=== PATIENT | male | born 1990 | race Caucasian/White ===

== ENCOUNTER 2016-08-25 16:55 | Emergency (ER) | payer MEDICAID ==
[2016-08-25 17:03] VITALS: RESP 16; TEMP 98.1; O2SAT 96
--- NOTE | 2016-08-25 18:57 | EDPHY ---
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 followed by neurology at [facility]. patient relates he tripped and fell accidental; witnessed; no LOC, saw "double for a bit." called neurology today and advised to go to ER for Head CT scan. does not take any blood thinners. behaving normally. Modifying Factors: Comment: ROS: Eyes: No blurred vision Respiratory: No shortness of breath, no cough Cardiovascular: No chest pain Gastrointestinal: No nausea, no vomiting no diarrhea Genitourinary: No dysuria Extremities: No myalgias Neurologic: No weakness, no numbness Skin: No rashes Hematologic: No bruising, no bleeding MEDICAL/SURGICAL HISTORY: see above Social History: lives with girlfriend Smoking Status: Former smoker Physical Exam: CONSTITUTIONAL: pleasant talkative younfg adult male, awake and alert, no obvious distress HEENT: Atraumatic and normocephalic, PERRL, EOMI. Tympanic membranes clear. . Oropharynx clear, no exudate and moist pink mucosa. Airway patent. No lymphadenopathy. No meningismus. Cardiovascular: Normal S1/S2, regular rate, regular rhythm, without murmur rub or gallop. PULMONARY/CHEST: Symmetrical and nontender. Clear to auscultation bilaterally Good air movement. No accessory muscle usage. ABDOMEN: Soft, nondistended, nontender, no rebound, no guarding, no peritoneal signs, no masses or organomegaly. No CVAT. EXTREMITIES: 2/2 pulses, no deformities, no clubbing, no cyanosis or edema. NEUROLOGICAL: no focal neuro deficits. GCS 15. peripheral vision normal. normal finger to nose. normal heel to rogers. no ataxia. SKIN: Warm and dry, no erythema. no rash. Good capillary refill. Constitutional: Initial Vital Signs Temperature (C) 36.7 C 08/25/16 16:59 Heart Rate 64 08/25/16 16:59 Respiratory Rate 16 08/25/16 16:59 Blood Pressure 105/70 08/25/16 16:59 O2 Sat (%) 96 08/25/16 16:59 O2 Delivery Mode Room Air Allergies/Adverse Reactions: opiates Allergy (Mild, Uncoded 08/25/16 16:58) GI upset Home Medications: Medication Instructions Recorded Ibuprofen [Motrin (RX)] 600 mg PO 12/07/13 LaMICtal 08/25/16 Medical Decision Making - Diagnostics Imaging Results: Imaging Impressions Head CT 08/25/16 18:02 Impression: Resolved cerebral edema. Nothing acute identified. Results called to Miriam Ruiz at 6:45 PM General information for patients regarding this examination can be found at [email or web address]. If you have questions or comments about this report, please contact me at (hospital) or [phone] (cell). ED Course/Re-evaluation: Head CT scan ordered due to history of brain surgery and neurology referral [facility]: right, left, bilateral no signs of ICH/fracture/CVA/TIA/syncope advised fall precautions and follow up with neurology as planned. Differential Diagnosis: Diplopia differential diagnosis includes but not limited to intracranial hemorrhage, edema, midline shift. Departure - Departure Disposition: Home, Routine, Self-Care Clinical Impression: History of surgery of head Accidental fall Qualifiers: Encounter type: initial encounter Qualified Code(s): W19.XXXA - Unspecified fall, initial encounter Condition: Good Instructions: Fall Prevention (ED) Additional Instructions: Follow up neurology at as planned. Referrals: Ulises Cole MD [Primary Care Provider] - As per Instructions
[2016-08-25 19:21] VITALS: BP 123/85; PULSE 62
== END 2016-08-25 19:21 | disposition home or self-care (01) ==
DX: Z98.890 Other specified postprocedural states (principal); Z04.3 Encounter for examination and observation following other accident; Z87.891 Personal history of nicotine dependence; W01.0XXA Fall on same level from slipping, tripping and stumbling without subsequent striking against object, initial encounter

== ENCOUNTER 2016-09-26 15:38 | Emergency (ER) | payer MEDICAID ==
[2016-09-26] MEDS ORDERED: levETIRAcetam 1,000 MG in NS 100 ML IV ONE (15:42)
[2016-09-26 15:58] LABS: % IMMATURE GRANULYOCYTES 0.7 % (0.0-1.1); ABSOLUTE IMMATURE GRANULOCYTES 0.12 10^3/uL (0.00-0.10); ADD DIFF? NO; ADD MORPH? NO; ADD SCAN? NO; ATYPICAL LYMPHOCYTE FLAG 0 (0-99); FRAGMENT RBC FLAG 0 (0-99); HEMATOCRIT 58.6 % (40.0-51.0); HEMOGLOBIN 17.7 g/dL (13.7-17.5); LEFT SHIFT FLG 10 (0-99); LIPEMIA HEMOLYSIS FLAG 80 (0-99); MEAN CELL HEMOGLOBIN 30.1 pg (27.9-34.1); MEAN CELL HEMOGLOBIN CONCENTR. 30.2 g/dL (32.4-36.7); MEAN CELL VOLUME 99.5 fL (81.5-99.8); MEAN PLATELET VOLUME 10.4 fL (8.7-11.7); PLATELET CLUMPS FLAG 0 (0-99); PLATELET COUNT 291 10^3/uL (150-400); RED BLOOD CELL COUNT 5.89 10^6/uL (4.40-6.38); RED CELL DISTRIBUTION WIDTH 12.3 % (11.5-15.2)
[2016-09-26] MEDS ORDERED: LORazepam 2 MG/ML INJ ONE (16:06)
[2016-09-26] MEDS ORDERED: LORazepam 2 MG/ML INJ IVP ONE ×2 (16:11→16:53)
[2016-09-26 16:12] LABS: APTT 26.4 SEC (23.0-38.0); INR 1.24 (0.83-1.16); PROTIME(PATIENT) 15.6 SEC (12.0-15.0)
[2016-09-26 16:18] LABS: ANION GAP 35 mEq/L (8-16); CALCIUM 11.1 mg/dL (8.5-10.4); CHLORIDE 106 mEq/L (97-110); CREATININE 1.2 mg/dL (0.7-1.3); ETHANOL SERUM < 10 mg/dL (0-10); GLOMERULAR FILTRATION RATE > 60; GLUCOSE 210 mg/dL (70-100); POTASSIUM 4.8 mEq/L (3.5-5.2); SODIUM 149 mEq/L (134-144)
--- NOTE | 2016-09-26 16:29 | EDPHY ---
H & P Time Seen by Provider: 09/26/16 15:57 HPI/ROS: CHIEF COMPLAINT: Altered mental status, seizure HISTORY OF PRESENT ILLNESS: The patient is a 26-year-old male with history of traumatic brain injury who presents to the emergency department with altered mental status and seizure. Per EMS, the patient was in his girlfriend mother's car when he stated he did not feel well. He then began having tonic-clonic type seizure activity. EMS arrived to find the patient with seizure-like activity. IV was placed. Patient was given a total of Versed 10 mg. On arrival to the emergency department patient was still having seizure-type activity and was not responsive to questioning. History is limited due the patient's mental status. REVIEW OF SYSTEMS: Unable to obtain due the patient's altered mental status and seizure Past Medical/Surgical History: Includes traumatic brain injury, seizure activity Past surgical history: Includes craniectomy Smoking Status: Unknown if ever smoked Physical Exam: Vitals noted. GENERAL: unresponsive. Eyes open. Occasional twitching facial activity. HEENT: Deformity on right skull. Pupils mildly dilated bilaterally. Minimally responsive to light. No pharyngeal lesions. Mild gag reflex. NECK: No thyromegaly, no lymphadenopathy, supple. RESPIRATORY: Coarse breath sounds bilaterally, no rhonchi or wheezing. CVS: Regular rate and rhythm, no rubs, murmurs, or gallops. ABDOMEN: Soft, nontender, no organomegaly. BACK: Normal to inspection, no CVA tenderness. SKIN: Normal color, no rash, warm, dry. No pallor. EXTREMITIES: No pedal edema, no calf tenderness, no Homans sign or cords, no joint swelling. NEURO/PSYCH: Patient unresponsive, no purposeful movement. Constitutional: Initial Vital Signs Temperature (C) 37.6 C 09/26/16 15:38 Heart Rate 134 H 09/26/16 15:38 Respiratory Rate 40 H 09/26/16 15:38 Blood Pressure 152/80 H 09/26/16 15:38 O2 Sat (%) 90 L 09/26/16 15:38 O2 Delivery Mode Ventilator O2 (L/minute) 15 Allergies/Adverse Reactions: Unable to Assess Allergy (Unverified 09/26/16 16:06) Home Medications: Medication Instructions Recorded Unobtainable 09/26/16 Medical Decision Making - Diagnostics Imaging Results: Imaging Impressions Head CT 09/26/16 15:42 Impression: Nothing acute. Findings and recommendations discussed with Minoo Segundo M.D., at 1620 hours, on September 26, 2016. Final report concurs with initial preliminary interpretation. Chest X-Ray 09/26/16 15:44 Impression: Negative portable chest Procedures: Indication for the procedure was airway protection. The patient was preoxygenated with 100% oxygen by face mask and nasal cannula. The patient was sedated with ketamine and paralyzed with rocuronium. The patient was orally endotracheally intubated under video laryngoscopy with a 7.5 ETT. Tracheal intubation was confirmed with misting on the tube; breath sounds were auscultated equally and course bilaterally; appropriate color change with [place] CO2 detector, capnography waveform is appropriate, oxygen saturation after procedure is 99%. Chest X-ray shows ETT in good position. The procedure was performed by myself. ED sedation Indication: Endotracheal intubation, ongoing seizure activity Patient was given propofol sedation post intubation for sedation ongoing seizure activity. ED Course/Re-evaluation: I met EMS on arrival. I took report from the director of intelligence. The patient was kept on supplemental oxygen and capnometry placed. EMS IV flushed and second line placed. Patient was noted to have intermittent facial twitching and left hand repetitive movement. Ativan 2 mg IV for possible ongoing seizure activity. Patient given normal saline 500 mL IV. Bedside chest x-ray: No acute disease noted. NPA placed. I reviewed the patient's i-STAT. His glucose was normal. His potassium was mildly elevated at 5.0. Head CT: Please refer the dictated report by Dr. Jillian Schreiber. No acute disease noted. Patient's girlfriend arrived to the emergency department. She states he has a history of traumatic brain injury. He takes seizure medication regularly but did not take his medication yesterday. His last seizure was last week. This normally is in the form of "an anxiety attack." She has not witnessed him having seizure-type movement previously. They have been together for 4 years. No recent trauma or injury per her report. She states that the patient normally receives his care at . I requested she obtained the name of his epileptologist. Spent significant time at the patient's bedside. Patient continued to have a gag reflex. He was placed on high-flow nasal cannula for his oxygen saturation dropping into the high 80s. He continued to tolerated the NPA. A Jose catheter was placed. Patient's girlfriend found the patient's primary care physician at [facility] - Dr. Melton. I discussed the case with [facility] transfer center. [facility] was launched for transport. Patient had elevated white count 37100. Hematocrit elevated at 58. CO2 was low at 8. Patient has elevated anion gap. Patient was noted to have negative UA. Salicylate and acetaminophen were negative. Alcohol level negative. Patient was given normal saline for hydration and elevated hematocrit of 58. On recheck the patient continued to have slight twitching activity of his face. He was given Ativan 1 mg IV. On recheck the patient had no gag reflex. Because the patient is being transferred and I am concerned for airway protection the patient was intubated. I discussed this with the patient's mother. She consented. The patient was intubated using ketamine for induction and rocuroniumfor paralysis. The patient's potassium on i-STAT was noted to be 5.0. Patient tolerated the procedure well. His oxygen saturation improved post intubation. He is placed on a propofol drip for sedation. I discussed the plan and patient's status with patient's family and girlfriend. 1700: I am still waiting for an accepting physician from [facility]. I re- paged there call center. I discussed the case with their tape transferrer. She will again attempt to obtain a physician and call me back. I discussed case with Dr. Rush. She accepted the patient. She agrees with the treatment plan thus far. 17 20: Nursing staff states they are waiting for a bed at the receiving facility. We do not have a nurse to nurse report at this time. Flight crew awaiting transfer. Differential Diagnosis: My differential includes but is not limited to epilepsy, status epilepticus, traumatic brain injury, subarachnoid hemorrhage, subdural hematoma, epidural hematoma, electrolyte abnormality, sugar abnormality, ACS, acute SC, pneumonia, bacteremia, sepsis Critical Care Time: The patient required 65 minutes of critical care time. This was exclusive of any unbundled procedure. This was due to the patient's altered mental status, extensive time spent at the bedside, multiple discussions with the patient's family, consultation with [facility], Dr. Rush and frequent rechecks. - Data Points Laboratory Results: Laboratory Results 09/26/16 15:30 09/26/16 15:30 09/26/16 09/26/16 09/26/16 16:25 16:25 15:30 WBC RBC Hgb Hct MCV MCH MCHC RDW Plt Count MPV Neut % (Auto) Lymph % (Auto) [place] % (Auto) Eos % (Auto) Baso % (Auto) Nucleat RBC Rel Count Absolute Neuts (auto) Absolute Lymphs (auto) Absolute Monos (auto) Absolute Eos (auto) Absolute Basos (auto) Absolute Nucleated RBC Immature Gran % Immature Gran # PT INR APTT Sodium Potassium Chloride Carbon Dioxide Anion Gap BUN Creatinine Estimated GFR Glucose Calcium Phosphorus Urine Color YELLOW Urine Appearance CLEAR Urine pH 6.0 (5.0-7.5) Ur Specific [place] 1.010 (1.002-1.030) Urine Protein 1+ H (NEGATIVE) Urine Ketones NEGATIVE (NEGATIVE) Urine Blood NEGATIVE (NEGATIVE) Urine Nitrate NEGATIVE (NEGATIVE) Urine Bilirubin NEGATIVE (NEGATIVE) Urine Urobilinogen NEGATIVE EU EU (0.2-1.0) Ur Leukocyte Esterase NEGATIVE (NEGATIVE) Urine RBC 1-3 /hpf /hpf (0-3) Urine WBC 0-1 /hpf /hpf (0-3) Ur Epithelial Cells TRACE /lpf /lpf (NONE-1+) Hyaline Casts 1-5 /lpf /lpf (0-1) Urine Mucus TRACE /lpf /lpf (NONE-1+) Urine Glucose NEGATIVE (NEGATIVE) Salicylates < 1.0 mg/dL L mg/dL (2.0-20.0) Urine Opiates Screen NEGATIVE (NEGATIVE) Acetaminophen < 10 mcg/mL L mcg/mL (10.0-30.0) Urine Barbiturates NEGATIVE (NEGATIVE) Ur Phencyclidine Scrn NEGATIVE (NEGATIVE) Ur Amphetamine Screen NEGATIVE (NEGATIVE) U Benzodiazepines Scrn NEGATIVE (NEGATIVE) Urine Cocaine Screen NEGATIVE (NEGATIVE) U Marijuana (THC) Screen NEGATIVE (NEGATIVE) Ethyl Alcohol 09/26/16 09/26/16 09/26/16 15:30 15:30 15:30 WBC 16.17 10^3/uL H 10^3/uL (3.80-9.50) RBC 5.89 10^6/uL 10^6/uL (4.40-6.38) Hgb 17.7 g/dL H g/dL (13.7-17.5) Hct 58.6 % H % (40.0-51.0) MCV 99.5 fL fL (81.5-99.8) MCH 30.1 pg pg (27.9-34.1) MCHC 30.2 g/dL L g/dL (32.4-36.7) RDW 12.3 % % (11.5-15.2) Plt Count 291 10^3/uL 10^3/uL (150-400) MPV 10.4 fL fL (8.7-11.7) Neut % (Auto) 33.1 % L % (39.3-74.2) Lymph % (Auto) 54.2 % H % (15.0-45.0) [place] % (Auto) 7.6 % % (4.5-13.0) Eos % (Auto) 3.7 % % (0.6-7.6) Baso % (Auto) 0.7 % % (0.3-1.7) Nucleat RBC Rel Count 0.0 % % (0.0-0.2) Absolute Neuts (auto) 5.34 10^3/uL 10^3/uL (1.70-6.50) Absolute Lymphs (auto) 8.77 10^3/uL H 10^3/uL (1.00-3.00) Absolute Monos (auto) 1.23 10^3/uL H 10^3/uL (0.30-0.80) Absolute Eos (auto) 0.60 10^3/uL H 10^3/uL (0.03-0.40) Absolute Basos (auto) 0.11 10^3/uL H 10^3/uL (0.02-0.10) Absolute Nucleated RBC 0.00 10^3/uL 10^3/uL (0-0.01) Immature Gran % 0.7 % % (0.0-1.1) Immature Gran # 0.12 10^3/uL H 10^3/uL (0.00-0.10) PT 15.6 SEC H SEC (12.0-15.0) INR 1.24 H (0.83-1.16) APTT 26.4 SEC SEC (23.0-38.0) Sodium 149 mEq/L H mEq/L (134-144) Potassium 4.8 mEq/L mEq/L (3.5-5.2) Chloride 106 mEq/L mEq/L (97-110) Carbon Dioxide 8 mEq/l L* mEq/l (22-31) Anion Gap 35 mEq/L H mEq/L (8-16) BUN 10 mg/dL mg/dL (7-23) Creatinine 1.2 mg/dL mg/dL (0.7-1.3) Estimated GFR > 60 Glucose 210 mg/dL H mg/dL (70-100) Calcium 11.1 mg/dL H mg/dL (8.5-10.4) Phosphorus 9.1 mg/dL H mg/dL (2.5-4.5) Urine Color Urine Appearance Urine pH Ur Specific [place] Urine Protein Urine Ketones Urine Blood Urine Nitrate Urine Bilirubin Urine Urobilinogen Ur Leukocyte Esterase Urine RBC Urine WBC Ur Epithelial Cells Hyaline Casts Urine Mucus Urine Glucose Salicylates Urine Opiates Screen Acetaminophen Urine Barbiturates Ur Phencyclidine Scrn Ur Amphetamine Screen U Benzodiazepines Scrn Urine Cocaine Screen U Marijuana (THC) Screen Ethyl Alcohol < 10 mg/dL mg/dL (0-10) Medications Given: Discontinued Medications Fentanyl (Sublimaze) 100 mcg IVP EDNOW ONE Stop: 09/26/16 16:56 Last Admin: 09/26/16 17:18 Dose: Not Given Levetiracetam 1,000 mg/ Sodium (Chloride) 110 mls @ 440 mls/hr IV EDNOW ONE Stop: 09/26/16 15:56 Last Admin: 09/26/16 15:53 Dose: 110 mls Ketamine HCl (Ketamine) 100 mg IVP EDNOW ONE Stop: 09/26/16 16:54 Last Admin: 09/26/16 16:55 Dose: 100 mg Lorazepam (Ativan Injection) 2 mg IVP EDNOW ONE Stop: 09/26/16 16:12 Last Admin: 09/26/16 15:46 Dose: 2 mg Lorazepam (Ativan Injection) 1 mg IVP EDNOW ONE Stop: 09/26/16 16:54 Last Admin: 09/26/16 16:47 Dose: 1 mg Rocuronium [place] (Zemuron) 80 mg IVP EDNOW ONE Stop: 09/26/16 16:54 Last Admin: 09/26/16 16:52 Dose: 80 mg Departure - Departure Disposition: Acute [facility] Clinical Impression: Status epilepticus Altered mental state Qualifiers: Altered mental status type: unspecified Qualified Code(s): R41.82 - Altered mental status, unspecified Leukocytosis Qualifiers: Leukocytosis type: other Qualified Code(s): D72.828 - Other elevated white blood cell count Condition: Critical Referrals: Ulises Cole MD [Primary Care Provider] - As per Instructions
[2016-09-26 16:31] LABS: CARBON DIOXIDE 8 mEq/l (22-31)
[2016-09-26] MEDS ORDERED: PROPOFOL/EMULSION 1,000 MG/100 ML BOTTLE IV ONE (16:42)
[2016-09-26 16:46] LABS: COLOR YELLOW; LEUKOCYTE ESTERASE,URINE NEGATIVE (NEGATIVE); NITRITE,URINE NEGATIVE (NEGATIVE)
[2016-09-26 16:50] LABS: MUCUS TRACE /lpf (NONE-1+)
[2016-09-26 16:52] LABS: WBC,URINE 0-1 /hpf (0-3)
[2016-09-26] MEDS ORDERED: ROCURONIUM 100 MG/10 ML VIAL IVP ONE (16:53)
[2016-09-26] MEDS ORDERED: KETAMINE 100 MG/10 ML SYR IVP ONE (16:53)
[2016-09-26 16:55] LABS: SALICYLATE < 1.0 mg/dL (2.0-20.0)
[2016-09-26] MEDS ORDERED: fentaNYL 100 MCG/2 ML INJ IVP ONE (16:55)
[2016-09-26] MEDS ORDERED: PROPOFOL/EMULSION 100 ML IV SCH (17:00)
--- NOTE | 2016-09-26 17:04 | CPEKG ---
Heart Rate: 64 RR Interval: 938 P-R Interval: 156 QRSD Interval: 120 QT Interval: 356 QTC Interval: 368 P [place]: 72 QRS [place]: 92 T Wave [place]: 67 EKG Severity - ABNORMAL ECG - EKG Impression: UNKNOWN RHYTHM, IRREGULAR RATE 47-80 EKG Impression: RBBB AND LPFB Electronically Signed By: Minoo Segundo 26-Sep-2016 20:58:24
[2016-09-26 17:18] VITALS: TEMP 97.3
[2016-09-26 17:24] VITALS: RESP 12
[2016-09-26 17:26] LABS: CALCULATED OXYGEN SATURATION 100 % (92-95)
[2016-09-26] MEDS ORDERED: KETAMINE 100 MG/10 ML SYR ONE (17:47)
[2016-09-26 18:05] VITALS: BP 133/78
[2016-09-26 18:09] VITALS: PULSE 123; O2SAT 96
== END 2016-09-26 17:45 | disposition short-term general hospital (02) ==
LOC: MERGE 15:38 → EDBD 15:38
PROC: 0BH17EZ Insertion of Endotracheal Airway into Trachea, Via Natural or Artificial Opening (ICD-10-PCS; principal; 2016-09-26)
PROC: 0T9B70Z Drainage of Bladder with Drainage Device, Via Natural or Artificial Opening (ICD-10-PCS; 2016-09-26)
DX: G40.901 Epilepsy, unspecified, not intractable, with status epilepticus (principal); R41.82 Altered mental status, unspecified; D72.829 Elevated white blood cell count, unspecified; R79.1 Abnormal coagulation profile
CPT/HCPCS: 80305; 82947-QW; 96365; G0480; J1953; J2060; J2704

== ENCOUNTER 2017-01-01 09:46 | Emergency (ER) | payer MEDICAID ==
[2017-01-01] MEDS ORDERED: LORazepam 2 MG/ML INJ ONE (09:50)
[2017-01-01] MEDS ORDERED: PROPOFOL/EMULSION 1,000 MG/100 ML BOTTLE IV ONE (09:52)
[2017-01-01] MEDS ORDERED: FOSPHENYTOIN SODIUM 500 MGPE/10 ML VIAL IVP ONE (09:58)
[2017-01-01] MEDS ORDERED: levETIRAcetam 500 MG in NS 100 ML IV ONE ×3 (10:00→11:01)
[2017-01-01 10:03] VITALS: TEMP 97.3
[2017-01-01] MEDS ORDERED: LORazepam 2 MG/ML INJ IVP ONE (10:05)
[2017-01-01 10:12] LABS: PLATELET COUNT 320 10^3/uL (150-400)
[2017-01-01] MEDS ORDERED: ETOMIDATE 40 MG/20 ML INJ IVP ONE ×2 (10:14→10:15)
[2017-01-01] MEDS ORDERED: SUCCINYLCHOLINE CHLORIDE 200 MG/10 ML VIAL IVP ONE ×2 (10:15)
--- NOTE | 2017-01-01 10:23 | EDPHY ---
H & P HPI/ROS: CHIEF COMPLAINT: Seizure, unresponsiveness HISTORY OF PRESENT ILLNESS: 26-year-old male with a traumatic head injury and resultant seizure disorder presents with status epilepticus. This morning, he had a focal seizure, witnessed by his girlfriend. These seizures consist of him being very anxious and somewhat tremulous. He was conversing with her during his head, but suddenly his eyes rolled back and he became unresponsive. She called 911. On EMS arrival, the patient was unresponsive and not maintaining his airway well. An OPA was placed and he was placed on 100% non- rebreather. Versed 5 mg IV given prior to arrival. He takes Vimpac for seizures and ran out of this medication this morning. REVIEW OF SYSTEMS: Unable to determine because of unresponsiveness Past Medical/Surgical History: Traumatic head injury, status post craniectomy 5 years ago Seizure disorder Social History: Single Neurologist: Dr. Melton at [facility] [place] Smoking Status: Unknown if ever smoked Physical Exam: General Appearance: Unresponsive to painful stimuli, tachypnea Head: Right skull deformity Eyes: Pupils equal and round, dysconjugate gaze ENT, Mouth: Mucous membranes moist, no gag reflex Neck: Normal inspection Respiratory: tachypnea, diffuse rhonchi Cardiovascular: Regular rate and rhythm Gastrointestinal: Abdomen is soft Neurological: unresponsive to painful stimuli, moves both legs spontaneously Skin: Warm and dry Extremities: normal inspection Psychiatric: unable to determine Constitutional: Initial Vital Signs Temperature (C) 36.3 C 01/01/17 10:01 Heart Rate 100 01/01/17 10:01 Respiratory Rate 36 H 01/01/17 10:01 Blood Pressure 148/78 H 01/01/17 10:01 O2 Sat (%) 90 L 01/01/17 10:01 O2 Delivery Mode Ventilator Allergies/Adverse Reactions: opiates Allergy (Mild, Uncoded 08/25/16 16:58) GI upset Home Medications: Medication Instructions Recorded Vimpat 01/01/17 Medical Decision Making - Diagnostics Imaging Results: Imaging Impressions Chest X-Ray 01/01/17 09:59 Impression: 1. High positioning of the endotracheal tube, 9.5 cm above the ayana. 2. Mild peribronchial thickening. Findings communicated via secure Voalte text to FALLON ROSA 01/01/2017at 10: [address] 01/01/17 09:59 Impression: 1. No acute intracranial findings. 2. Multiple stable findings, as above. Findings discussed with Fallon Rosa on January 01, 2017 at 1038 hours. Chest X-Ray 01/01/17 10:15 Impression: Interval advancement of endotracheal tube, now in good position. Procedures: Procedure: RSI Intubation Indication for the procedure was status epilepticus, airway protection. The patient was preoxygenated with 100% oxygen by face mask. The patient was sedated with etomidate and paralyzed with succinylcholine. The patient was orally endotracheally intubated under direct glidescope visualization with a 7.5 ETT. Tracheal intubation was confirmed with misting on the tube; equal breath sounds bilaterally immediately after intubation; appropriate color change with [place] End Tidal CO2 detector; and appropriate capnography waveform. Oxygen saturation after intubation is 96% . The procedure was performed by myself. Chest X-ray shows ETT high, the ET tube was repositioned by RT. ED Course/Re-evaluation: This patient presents in status epilepticus. An IV was placed and Ativan 1 mg IV given as we set up for intubation. The patient was orally intubated with a 7.5 endotracheal tube. The ETT was a too high. After repositioning, the patient began to gag and choke. I checked the endotracheal tube and it was not in correct positioning. I reintubated the patient using a repeat dose of etomidate and succinylcholine. A 7.5 endotracheal tube was placed under direct vision using the glide scope. A repeat chest x-ray revealed ET tube in good positioning. The pt was always adequately oxygen needed and had no episodes of hypoxia. The patient was sent to CT scan. Keppra [address] after CT scan. The transfer Center was consulted. Prior medical record reviewed; this patient presented in status epilepticus in August 2016, was intubated and was flown to [place], where his usual neurologist is. 10:30 a.m.-generalized seizure. Fosphenytoin is infusing. Keppra 500 mg IV ordered (total of 1gram). Vecuronium 10 mg IV given. After the vecuronium, the patient's blood pressure transiently lowered to 80's/50's. The propofol was held. After IV normal saline, his blood pressure stabilized. He began moving again. After this the propofol was restarted slowly. His blood pressure remained stable after this and he remained appropriately sedated. 10:45 a.m.-I consulted Dr. Pardo at [place]. She accepts transfer to [place] ICU. ABG performed, ph 7.23, secondary to prolonged seizure activity. Discussed with Respiratory therapy, the respiratory rate was increased. The FiO2 was decreased because the PO2 of 465. The transfer center was contacted with the ABG results (at Dr. Mcneal's request). The patient was transferred to [facility] by critical care transport. Differential Diagnosis: Differential diagnosis includes though it is not limited to status epilepticus, hypoglycemia, intracranial hemorrhage, CVA, benzodiazepine withdrawal, alcohol withdrawal, epilepsy. Critical Care Time: I spent a total of 50 minutes of critical care time in obtaining history, performing a physical exam, bedside monitoring of interventions, collecting and interpreting tests and discussion with consultants but not including time spent performing procedures. Primary organ at risk: brain - Data Points Laboratory Results: Laboratory Results 01/01/17 09:50 01/01/17 09:50 01/01/17 01/01/17 01/01/17 11:00 09:50 09:50 WBC 15.33 10^3/uL H 10^3/uL (3.80-9.50) RBC 5.79 10^6/uL 10^6/uL (4.40-6.38) Hgb 17.3 g/dL g/dL (13.7-17.5) Hct 54.0 % H % (40.0-51.0) MCV 93.3 fL fL (81.5-99.8) MCH 29.9 pg pg (27.9-34.1) MCHC 32.0 g/dL L g/dL (32.4-36.7) RDW 12.4 % % (11.5-15.2) Plt Count 320 10^3/uL 10^3/uL (150-400) MPV 10.2 fL fL (8.7-11.7) Neut % (Auto) Not Reported Lymph % (Auto) Not Reported [place] % (Auto) Not Reported Eos % (Auto) Not Reported Baso % (Auto) Not Reported Nucleat RBC Rel Count 0.0 % % (0.0-0.2) Absolute Neuts (auto) Not Reported Absolute Lymphs (auto) Not Reported Absolute Monos (auto) Not Reported Absolute Eos (auto) Not Reported Absolute Basos (auto) Not Reported Absolute Nucleated RBC 0.00 10^3/uL 10^3/uL (0-0.01) Immature Gran % Not Reported Seg Neutrophils % 26 % % Lymphocytes % 64 % % Monocytes % 8 % % Eosinophils % 2 % % Immature Gran # Not Reported Absolute Seg Neuts 3.99 10^/uL 10^/uL (1.70-6.50) Absolute Lymphocytes 9.81 10^3/uL H 10^3/uL (1.00-3.00) Absolute Monocytes 1.23 10^3/uL H 10^3/uL (0.30-0.80) Absolute Eosinophils 0.31 10^3/uL 10^3/uL (0.03-0.40) RBC/WBC/PLT Morphology NORMAL (NORMAL) Atypical Lymphocytes 2+ H Platelet Estimate ADEQUATE (ADEQ) Smear Review By Pending Puncture Site RIGHT BRACHIAL Patient Temperature 37.0 DEGREES DEGREES pCO2 38 mmHg mmHg (34-38) pO2 479 mmHg H mmHg (65-75) Total CO2 16 mEq/L L mEq/L (23-27) ABG pH 7.23 L (7.35-7.45) ABG PO2/FiO2 Ratio 479 RATIO RATIO ABG HCO3 15 mEq/L L mEq/L (22-26) ABG O2 Saturation 100 % H % (92-95) ABG Base Excess -11.5 mEq/L L mEq/L (-2.5-2.5) O2 Concentration % 100 % % (0-100) Set Respiration Rate 14 Assist Control YES Tidal Volume 600 PEEP 5 Sodium 145 mEq/L H mEq/L (134-144) Potassium 4.1 mEq/L mEq/L (3.5-5.2) Chloride 105 mEq/L mEq/L (97-110) Carbon Dioxide 9 mEq/l L* mEq/l (22-31) Anion Gap 31 mEq/L H mEq/L (8-16) BUN 13 mg/dL mg/dL (7-23) Creatinine 1.0 mg/dL mg/dL (0.7-1.3) Estimated GFR > 60 Glucose 191 mg/dL H mg/dL (70-100) Calcium 9.9 mg/dL mg/dL (8.5-10.4) Medications Given: Discontinued Medications Etomidate (Etomidate) 20 mg IVP EDNOW ONE Stop: 01/01/17 10:15 Last Admin: 01/01/17 09:53 Dose: 20 mg Etomidate (Etomidate) 20 mg IVP EDNOW ONE Stop: 01/01/17 10:16 Last Admin: 01/01/17 10:12 Dose: 20 mg Fosphenytoin Sodium (Cerebyx) 500 mgpe IVP EDNOW ONE Stop: 01/01/17 09:59 Last Admin: 01/01/17 10:40 Dose: 500 mgpe Levetiracetam 500 mg/ Sodium (Chloride) 105 mls @ 420 mls/hr IV ONCE ONE Stop: 01/01/17 10:14 Last Admin: 01/01/17 10:20 Dose: 105 mls Propofol (Diprivan 10 Mg/Ml (Premix)) 100 mls @ 0 mls/hr IV CONT EMANUEL; Titrate PRN Reason: Protocol Stop: 06/30/17 10:29 Last Admin: 01/01/17 10:15 Dose: 100 mls Levetiracetam 500 mg/ Sodium (Chloride) 105 mls @ 420 mls/hr IV EDNOW ONE Stop: 01/01/17 10:58 Last Admin: 01/01/17 10:46 Dose: Not Given Levetiracetam 500 mg/ Sodium (Chloride) 105 mls @ 420 mls/hr IV EDNOW ONE Stop: 01/01/17 11:15 Last Admin: 01/01/17 11:15 Dose: 105 mls Sodium Chloride (Ns) 1,000 mls @ 0 mls/hr IV ONCE ONE PRN Reason: Wide Open Stop: 01/01/17 11:54 Last Admin: 01/01/17 10:00 Dose: 1,000 mls Sodium Chloride (Ns) 1,000 mls @ 0 mls/hr IV ONCE ONE PRN Reason: Wide Open Stop: 01/01/17 11:55 Last Admin: 01/01/17 11:00 Dose: 1,000 mls Lorazepam (Ativan Injection) 1 mg IVP EDNOW ONE Stop: 01/01/17 10:06 Last Admin: 01/01/17 09:52 Dose: 1 mg Succinylcholine Chloride (Quelicin) 100 mg IVP EDNOW ONE Stop: 01/01/17 10:16 Last Admin: 01/01/17 09:53 Dose: 100 mg Succinylcholine Chloride (Quelicin) 90 mg IVP EDNOW ONE Stop: 01/01/17 10:16 Last Admin: 01/01/17 10:12 Dose: 90 mg Vecuronium [place] (Vecuronium [place]) 10 mg IV EDNOW ONE Stop: 01/01/17 10:42 Last Admin: 01/01/17 10:45 Dose: 10 mg Departure - Departure Disposition: [facility] Clinical Impression: Status epilepticus Respiratory failure Qualifiers: Chronicity: acute Respiratory failure complication: hypoxia and hypercapnia Qualified Code(s): J96.01 - Acute respiratory failure with hypoxia Condition: Critical Referrals: Ulises Cole MD [Primary Care Provider] - As per Instructions
[2017-01-01] MEDS ORDERED: PROPOFOL/EMULSION 100 ML IV SCH (10:30)
[2017-01-01] MEDS ORDERED: VECURONIUM BROMIDE 10 MG VIAL IV ONE (10:41)
[2017-01-01 11:04] VITALS: RESP 16
[2017-01-01 11:53] VITALS: BP 102/68; PULSE 86; O2SAT 100
[2017-01-01] MEDS ORDERED: NS 1,000 ML IV ONE ×2 (11:53→11:54)
[2017-01-01] MEDS ORDERED: ETOMIDATE 40 MG/20 ML INJ ONE (12:13)
[2017-01-01] MEDS ORDERED: SUCCINYLCHOLINE CHLORIDE*ANESTHESIA ONLY*200 MG/10 ML SYR IVP ONE (12:14)
--- NOTE | 2017-01-01 14:08 | ASDISCHSUM ---
Discharge Information Plan Status:Acute Transfer Medically Cleared to Leave: Discharge Date:01/01/2017 12:08 PM CM D/C Disposition:[facility] ADT D/C Disposition:[facility] Projected Discharge Date:01/01/2017 12:08 PM Transportation at D/C:ALS/BLS Discharge Delay Reason: Follow-Up Date:01/01/2017 12:08 PM Discharge Slot: Final Diagnosis: Placement Information Patient Contact Information Contact Name:MADYSON Relationship:Mother Address: Work Phone: City:[place] Alternate Phone: State/[employer] Code:[place] Email: Financial Information Financial Class: Primary Plan 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 Patient was brought in as a full trauma and his girlfriend Raymon canela along with patient in ambulance. This CM was not available at the time of their arrival but once available, connected with Chaplain Nandini, who had been able to provide support and assistance. This CM assisted with communication between ED MD and family, including patient's mother, Savanna (pt's [facility]) who had arrived to the ED. Patient to be transferred to [facility] by ground critical care transport. Assisted with getting consent for transfer (on EMTALA) signed by Savanna. CM available for further assistance. Date Signed: 01/01/2017 02:05 PM Electronically Signed By:Adriana Soriano RN LACE LACE Acuity / Level of Care Answers: No. Emergency dept visits in Answers: 3 last 6 months Score: 3 Date Signed: 01/01/2017 02:06 PM Electronically Signed By:Adriana Soriano RN Intervention Information
--- NOTE | 2017-01-01 14:08 | ASDISCHSUM ---
Discharge Information Plan Status:Acute Transfer Medically Cleared to Leave: Discharge Date:01/01/2017 12:08 PM CM D/C Disposition:[facility] ADT D/C Disposition:[facility] Projected Discharge Date:01/01/2017 12:08 PM Transportation at D/C:ALS/BLS Discharge Delay Reason: Follow-Up Date:01/01/2017 12:08 PM Discharge Slot: Final Diagnosis: Placement Information Patient Contact Information Contact Name:MADYSON Relationship:Mother Address: Work Phone: City:[employer] Alternate Phone: State/[place] Code:[place] Email: Financial Information Financial Class: Primary Plan 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 Patient was brought in as a full trauma and his girlfriend Raymon canela along with patient in ambulance. This CM was not available at the time of their arrival but once available, connected with Chaplain Nandini, who had been able to provide support and assistance. This CM assisted with communication between ED MD and family, including patient's mother, Savanna (pt's [facility]) who had arrived to the ED. Patient to be transferred to [facility] by ground critical care transport. Assisted with getting consent for transfer (on EMTALA) signed by Savanna. CM available for further assistance. Date Signed: 01/01/2017 02:05 PM Electronically Signed By:Adriana Soriano RN LACE LACE Acuity / Level of Care Answers: No. Emergency dept visits in Answers: 3 last 6 months Score: 3 Date Signed: 01/01/2017 02:06 PM Electronically Signed By:Adriana Soriano RN Intervention Information
--- NOTE | 2017-01-01 14:08 | ASDISCHSUM ---
Discharge Information Plan Status:Acute Transfer Medically Cleared to Leave: Discharge Date:01/01/2017 12:08 PM CM D/C Disposition:[facility] ADT D/C Disposition:[facility] Projected Discharge Date:01/01/2017 12:08 PM Transportation at D/C:ALS/BLS Discharge Delay Reason: Follow-Up Date:01/01/2017 12:08 PM Discharge Slot: Final Diagnosis: Placement Information Patient Contact Information Contact Name:MADYSON Relationship:Mother Address: Work Phone: City:[place] Alternate Phone: State/[place] Code:[place] Email: Financial Information Financial Class: Primary Plan 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 Patient was brought in as a full trauma and his girlfriend Raymon canela along with patient in ambulance. This CM was not available at the time of their arrival but once available, connected with Chaplain Nandini, who had been able to provide support and assistance. This CM assisted with communication between ED MD and family, including patient's mother, Savanna (pt's [facility]) who had arrived to the ED. Patient to be transferred to [facility] by ground critical care transport. Assisted with getting consent for transfer (on EMTALA) signed by Savanna. CM available for further assistance. Date Signed: 01/01/2017 02:05 PM Electronically Signed By:Adriana Soriano RN LACE LACE Acuity / Level of Care Answers: No. Emergency dept visits in Answers: 3 last 6 months Score: 3 Date Signed: 01/01/2017 02:06 PM Electronically Signed By:Adriana Soriano RN Intervention Information
--- NOTE | 2017-01-03 21:59 | CPEKG ---
Heart Rate: 67 RR Interval: 896 P-R Interval: 152 QRSD Interval: 122 QT Interval: 392 QTC Interval: 414 P [place]: 72 QRS [place]: 93 T Wave [place]: 58 EKG Severity - ABNORMAL ECG - EKG Impression: SINUS RHYTHM EKG Impression: RBBB AND LPFB Electronically Signed By: Jim Jacobs 05-Jan-2017 09:04:51
--- NOTE | 2017-01-03 21:59 | CPEKG ---
Heart Rate: 67 RR Interval: 896 P-R Interval: 152 QRSD Interval: 122 QT Interval: 392 QTC Interval: 414 P [place]: 72 QRS [place]: 93 T Wave [place]: 58 EKG Severity - ABNORMAL ECG - EKG Impression: SINUS RHYTHM EKG Impression: RBBB AND LPFB Electronically Signed By: Jim Jacobs 05-Jan-2017 09:04:51
== END 2017-01-01 12:08 | disposition short-term general hospital (02) ==
LOC: EDUNIT#
DX: G40.901 Epilepsy, unspecified, not intractable, with status epilepticus (principal); J96.01 Acute respiratory failure with hypoxia
CPT/HCPCS: 82947-QW; 96374; J0330; J1953; J2060; J2704; Q2009

== ENCOUNTER 2017-03-06 14:06 | Observation (INO) | payer MEDICAID ==
[2017-03-06] MEDS ORDERED: LACOSAMIDE 200 MG in NS 50 ML IV ONE ×2 (14:27→15:57)
[2017-03-06] MEDS ORDERED: ONDANSETRON 4 MG/2 ML VIAL IVP ONE ×2 (14:27→16:42)
[2017-03-06] MEDS ORDERED: LORazepam 2 MG/ML INJ IVP ONE ×2 (14:27→22:00)
[2017-03-06] MEDS ORDERED: NS 1,000 ML IV ONE (14:27)
--- NOTE | 2017-03-06 14:33 | EDPHY ---
General - History Smoking Status: Current every day smoker Narrative: CHIEF COMPLAINT: Flu-like symptoms, possible seizure HISTORY OF PRESENT ILLNESS: Patient presents with complaints of flu-like symptoms and possible seizure. He says that late last night he began feeling nauseated and overnight began vomiting. He has had multiple bouts of vomiting, malaise and feeling that he has the flu. Due to this he has not kept down his anti seizure medication Vimpat this morning. He says this morning he had "a focal seizure." He describes this as numbness of the mouth, tingling of the left arm and left leg, feeling anxious. He is aware of these feelings when the occur. These last for an unknown amount of time. He is concerned because these episodes have progressed to grand mal seizure in the past. He has had these in the past. Does have a diagnosis of epilepsy with last episode of grand mal seizure last December, where he was admitted to [facility]. REVIEW OF SYSTEMS: Ten systems reviewed and are negative unless otherwise noted in the HPI PCP: Dr. Cole SPECIALISTS: Dr. 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 No raccoon eyes. Eyes: Pupils equal and round, no conjunctival pallor or injection, right-sided strabismus reportedly chronic. EOMs are intact with right-sided chronic dysconjugate a [facility], Mouth: Mucous membranes moist Neck: Normal inspection, supple, non-tender Respiratory: Lungs are clear to auscultation . No wheezing, rhonchi or crackles Cardiovascular: Regular rate and rhythm. No murmur Gastrointestinal: Abdomen is soft and nontender Back: non-tender, no bony abnormalities Neurological: GCS 15. Cranial nerves 2-12 grossly intact. A&O, nonfocal, strength symmetric in all 4 limbs. Skin: Warm and dry, no rash. No petechiae or purpura Extremities: Nontender, no pedal edema. Symmetric range of motion Psychiatric: Mood and affect normal DIFFERENTIAL DIAGNOSES: Including but not limited to influenza, seizure, anxiety attack, dehydration, viral illness MDM: 2:25 p.m. Flu-like symptoms with possible seizure activity at home. No seizure activity witnessed here. Vital signs are within normal limits with mild tachycardia. The patient does appear to have flu-like symptoms. I have ordered IV fluid, laboratory studies, influenza swab. I have ordered IV Ativan, IV them pad and IV nausea medication. Patient has requested that I speak to his physician in [place], Dr. Melton. I will attempt to discuss with her while I have more information. 2:45 p.m. environmental monitoring technician has been on the phone for 10 min with the office of Dr. Melton and thus far unsuccessful getting hold of her. We will try again later. 2:50 p.m. Case discussed with his neurologist Dr. Melton. She is well aware of the patient' s scenario and is concerned that he may need a CT scan of the head due to possible seizure this morning an ongoing neuro complaints status post TBI. She would like a CT scan performed she agrees with remainder of my therapeutic case manager thus far. She gave me her cell phone number subacute contact her following the CT scan results. 3:30 p.m. Laboratory studies thus far are consistent with viral illness. CO2 is within normal limits. Influenza test pending. CT scan has been performed and facial interpretation pending. I have reviewed the scan, and I do not appreciate any acute change from the December CT scan at this facility. Patient is feeling much better with IV fluid and Ativan. 3:55 p.m. Case discussed with neurologist Dr. Melton. I reviewed the exact findings from the CT scan and noted that this is different from December 2016 scan. She is aware that the patient's right-sided cranioplasty has been deteriorating. She informs that the patient has been noncompliant with Neurosurgery follow-up and has been unwilling to have a revision of this. She states she is comfortable with an MRI outpatient and does not want an emergent MRI the. She would like the patient to receive an additional 200 mg of IV piggyback Vimpat. She is comfortable with patient being discharged home if he is tolerating intake by mouth including medications by mouth, as she states multiple episodes of status from lack of intake of medication in the past. I have ordered the additional IV medication and will re-evaluate. 4:05 p.m. Patient re-evaluated. He continues to feel well. We discussed the above conversation with his neurologist. He is drinking water at this time. He has his Lamictal at bedside that he will attempt to take. I will recheck for p.o. tolerance. This was all discussed with Dr. Martinez. 4:35 p.m. Patient re-evaluated. He continues to improve. He has tolerated intake of liquid and his home Lamictal. He is not feeling nauseated. I did offer admission to the hospital for IV fluid resuscitation and IV medication. He has declined. He would like to go home. I do feel this is reasonable given that he is tolerating intake by mouth. We have strict ED precautions for vomiting or inability to keep his Vimpat down. He understands this and will return if he is unable to do so. He will contact his established neurologist Dr. Melton for outpatient follow-up as discussed. He is stable for discharge home 4:40 p.m. I was just notified by RN that the patient has vomited again. I have re- evaluated the patient he is actively vomiting. He will just need to be admitted to the hospital. IV Zofran as been ordered. 4:45 p.m. Case discussed with hospitalist Dr. Stratton. He will admit the patient to his service. He is admitted in stable condition. He will need an additional dose of Vimpat 200 mg IV at 2:00 a.m. SUPERVISION: Patient was independently examined, but I discussed the case with my secondary supervising physician Dr. Martinez ([facility]) Discussion: I evaluated and participated in the management of the patient. My co-signature indicates that I have reviewed this chart and I agree with thefindings and plan of care as documented. My personal H&P findings include: 26 year old male with history of seizures. Has been ill with vomiting and unable to hold down anti-epileptic medications. Initial evaluation in ED included labs, head CT, fluids and anti-emetics. Patient had been feeling better and close follow up was arranged with his neurologist Dr Melton. Trial of PO fluids performed in ED; however patient vomiting despite fluids and anti- emetics. Currently resting comfortably. Has just vomited. Understands importance of being able to tolerate po medications. On exam: alert, oriented. Afebrile. Has chronic strabismus. Lungs clear, heart regular. Abdomen soft, nontender, nondistended. Neurologically intact, nonfocal exam. Plan to admit. (Fabby Martinez) - Objective Vital Signs: Initial Vital Signs Temperature (C) 36.8 C 03/06/17 14:09 Heart Rate 108 H 03/06/17 14:09 Respiratory Rate 16 03/06/17 14:09 Blood Pressure 102/58 L 03/06/17 14:09 O2 Sat (%) 94 03/06/17 14:09 O2 Delivery Mode Room Air Allergies/Adverse Reactions: opiates Allergy (Mild, Uncoded 08/25/16 16:58) GI upset Home Medications: Medication Instructions Recorded Lacosamide [Vimpat] 200 mg PO BID 01/01/17 Brivaracetam [Briviact] 25 mg PO BID 03/06/17 LORazepam [Ativan (*)] 0.5 mg PO DAILY PRN 03/06/17 lamoTRIgine [LamICTAL XR] 200 mg PO BID 03/06/17 Laboratory Results: Laboratory Results 03/06/17 14:25 03/06/17 14:25 Medications Given: Discontinued Medications Acetaminophen (Tylenol) 650 mg PO Q4HRS PRN PRN Reason: Pain, Mild/Fever, Can Take PO Stop: 09/02/17 19:15 Last Admin: 03/07/17 10:55 Dose: 650 mg Sodium Chloride (Ns) 1,000 mls @ 0 mls/hr IV EDNOW ONE; Wide Open PRN Reason: Protocol Stop: 03/06/17 14:28 Last Admin: 03/06/17 14:32 Dose: 1,000 mls Lacosamide 200 mg/ Sodium (Chloride) 70 mls @ 280 mls/hr IV EDNOW ONE Stop: 03/06/17 14:41 Last Admin: 03/06/17 14:56 Dose: 70 mls Lacosamide 200 mg/ Sodium (Chloride) 70 mls @ 280 mls/hr IV EDNOW ONE Stop: 03/06/17 16:11 Last Admin: 03/06/17 16:17 Dose: 70 mls Sodium Chloride (Ns) 1,000 mls @ 125 mls/hr IV CONT EMANUEL Stop: 09/02/17 19:29 Last Admin: 03/06/17 22:46 Dose: 1,000 mls Lacosamide 200 mg/ Sodium (Chloride) 70 mls @ 280 mls/hr IV ONCE ONE Stop: 03/07/17 02:14 Last Admin: 03/07/17 02:18 Dose: 70 mls Lorazepam (Ativan Injection) 1 mg IVP EDNOW ONE Stop: 03/06/17 14:28 Last Admin: 03/06/17 14:32 Dose: 1 mg Lorazepam (Ativan Injection) 1 mg IVP ONCE ONE Stop: 03/06/17 22:01 Last Admin: 03/06/17 22:45 Dose: 1 mg Miscellaneous Medication (Brivaracetam [Briviact]) 25 mg PO BID [facility] Stop: 09/02/17 20:59 Last Admin: 03/07/17 09:29 Dose: Not Given Miscellaneous Medication (Lamotrigine [Lamictal Xr]) 200 mg PO BID [facility] Stop: 09/02/17 20:59 Last Admin: 03/07/17 09:29 Dose: Not Given Ondansetron HCl (Zofran) 4 mg IVP EDNOW ONE Stop: 03/06/17 14:28 Last Admin: 03/06/17 14:33 Dose: Not Given Ondansetron HCl (Zofran) 4 mg IVP EDNOW ONE Stop: 03/06/17 16:43 Last Admin: 03/06/17 17:18 Dose: Not Given Departure - Departure Disposition: [facility] Inpatient Acute Clinical Impression: Seizure disorder Nausea & vomiting Qualifiers: Vomiting type: unspecified Vomiting Intractability: non-intractable Qualified Code(s): R11.2 - Nausea with vomiting, unspecified Condition: Good
[2017-03-06 14:39] LABS: PLATELET COUNT 138 10^3/uL (150-400)
[2017-03-06] MEDS ORDERED: ONDANSETRON DISINTEGRATING 4 MG TAB PO PRN (19:16)
[2017-03-06] MEDS ORDERED: ONDANSETRON 4 MG/2 ML VIAL IVP PRN (19:16)
[2017-03-06] MEDS ORDERED: ACETAMINOPHEN 325 MG TAB PO PRN (19:16)
[2017-03-06] MEDS ORDERED: NS 1,000 ML IV SCH (19:30)
--- NOTE | 2017-03-06 20:28 | GHP ---
[f rep st] HISTORY AND PHYSICAL DATE OF ADMISSION: 03/06/2017 CHIEF COMPLAINT: Nausea, vomiting, history of seizure disorder. HISTORY OF PRESENT ILLNESS: This is a 26-year-old male, who has a history of a traumatic brain injur y with significant seizures. He has been in status a couple times. He does see a neurologist at [facility] [address], Dr. Melton. This morning he developed nausea, vomiting and fevers, chills with a little bit of myalgias. He thinks he got the flu. His girlfriend was sick with similar symptoms but she did have some diarrhea with it a few days ago. He has been unable to take his seizure medicine and he has had breakthrough seizures with just missing a few doses, and thus his neurologist told to come to the em ergency department. It appears he has had some small seizures before coming in. He tried taking med ications at 4:00 this afternoon and he vomited up 4 or 5 minutes later. REVIEW OF SYSTEMS: A 10-point review of systems was obtained and negative. PAST MEDICAL HISTORY: 1. Traumatic brain injury several years ago. 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 2. Seizure. This only started about a year ago and he has been status twice. He sees Dr. Melton, tatiana rologist at the [facility]. MEDICATIONS: As reviewed. SOCIAL HISTORY: He does smoke marijuana. FAMILY HISTORY: Reviewed and noncontributory. PHYSICAL EXAM: VITAL SIGNS: Afebrile, blood pressure is 107/54, heart rate 94, oxygen saturation 94 % on room air. GENERAL: The patient is well developed, no apparent distress. HEENT: There is a la rge skull deformity on the right side. Slightly dry mucous membranes. NECK: Supple. No thyromegal y. LUNGS: Good effort. Clear to auscultation bilaterally. CARDIOVASCULAR: Regular rate and rhyth m. No murmurs, gallops. ABDOMEN: Positive bowel sounds. Soft, nontender, nondistended. No hepato splenomegaly. EXTREMITIES: No clubbing, cyanosis, or edema. SKIN: Without rash. Dry, intact. NE UROLOGIC: Alert and oriented x3. Moves all 4 extremities equally. PSYCH: Normal mood and affect. LABS: CBC is normal except for platelets slightly low. Chemistries normal. Flu is negative. CT sc an of the head shows sequela of that postsurgical changes of the right hemicranium. ASSESSMENT: This is a 26-year-old male with a history of significant seizure disorder, unable to liss p his seizure medicines down. 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 I discussed the case with Dr. Melton. Her phone num harshad is [phone]. She is recommending another dose of Vimpat at 2:00 in the morning IV and then a trial to see if he is able to take that down in the morning. We will also retry his Lamictal tonigh t and also we should give a dose of Ativan tonight as well. We will monitor him on the neuro floor. If he is able to tolerate his seizure medications in the morning, he will be discharged. 2. Viral gastroenteritis. This is most likely the case of his nausea and vomiting. He is not havin g any abdominal pain. His white blood cell count is normal. /[id number]/MODL
[2017-03-06] MEDS: BRIVARACETAM 25 MG PO SCH (21:37)
[2017-03-06] MEDS: LAMOTRIGINE 200 MG PO SCH (21:38)
[2017-03-07] MEDS ORDERED: LACOSAMIDE 200 MG in NS 50 ML IV ONE (02:00)
[2017-03-07 08:46] VITALS: BP 102/49; PULSE 82; RESP 18; TEMP 98.2; O2SAT 95
[2017-03-07] MEDS: LAMOTRIGINE 200 MG PO SCH (09:29)
[2017-03-07] MEDS: BRIVARACETAM 25 MG PO SCH (09:29)
--- NOTE | 2017-03-07 11:40 | ASDISCHSUM ---
Discharge Information Plan Status:Home with No Needs Medically Cleared to Leave: Discharge Date:03/07/2017 11:36 AM CM D/C Disposition:Home, Routine, Self-Care ADT D/C Disposition:Home, Routine, Self-Care Projected Discharge Date:03/07/2017 11:36 AM Transportation at D/C: Discharge Delay Reason: Follow-Up Date:03/07/2017 11:36 AM Discharge Slot: Final Diagnosis: Placement Information Patient Contact Information Contact Name:MADYSON Relationship:Mother Address: Work Phone: City:[place] Alternate Phone: State/[place] Code:[place] Email: Financial Information Financial Class: Primary Plan Desc:[employer] Primary Plan Number:[id number] Secondary Plan Desc: Secondary Plan Number: Assessment Information [facility] CM Progress Note CM Note CM Note Notes: Pt medically stable for d/c, no CM d/c needs identified. Date Signed: 03/07/2017 11:39 AM Electronically Signed By:ROYCE Link Intervention Information
--- NOTE | 2017-03-07 15:46 | GDS ---
[f rep st] DISCHARGE SUMMARY DISCHARGE DIAGNOSIS: Seizure disorder. HISTORY OF PRESENT ILLNESS: The patient is a 26-year-old male with a history of traumatic brain inju ry. He does suffer from seizure activity. Over the last several days, he was unable to tolerate his anti epileptic medications secondary to his nausea and vomiting. He received supportive management during this hospitalization. His condition has completely resolved. He is tolerating a regular diet and also tolerating oral home medications. He is eager to be discharged home. FOLLOWUP: He will follow up with his regular neurologist in the outpatient setting. There are no pe nding studies. DISCHARGE MEDICATIONS: Please refer to EMR form. I have not adjusted any of the patient's previousl y prescribed home medications to the best of my knowledge. /[id number]/MODL
== END 2017-03-07 11:36 | disposition home or self-care (01) ==
LOC: F3N 17:35
PROVIDERS: ADMIT Internal Medicine; ATTEND Internal Medicine
DX: R56.9 Unspecified convulsions (principal); F17.200 Nicotine dependence, unspecified, uncomplicated; F12.10 Cannabis abuse, uncomplicated
CPT/HCPCS: 70450; G0378; 96365; J2060; J2405

== ENCOUNTER → 2017-05-17 | Outpatient (CLI) | payer MEDICAID | LOC: FIMAGING 15:58 | DX: G93.89 Other specified disorders of brain (principal); J01.00 Acute maxillary sinusitis, unspecified ==